=== PATIENT | female | born 1990 | race Caucasian/White ===

== ENCOUNTER 2019-04-24 14:20 | Emergency (ER) | payer OTHER ==
[~2019-04-24] VITALS: Ht 154.9 cm; Wt 56.7 kg
[2019-04-24 14:34] VITALS: BP 119/78
--- NOTE | 2019-04-24 15:00 | NUR ---
SEEN AND EXAMINED BY DR. MARTINEZ.
--- NOTE | 2019-04-24 15:28 | NUR ---
Patient discharged to home in stable condition. Written and verbal after care instructions given. Patient verbalizes understanding of instruction.
== END 2019-04-24 15:30 | disposition home or self-care (01) ==
LOC: ER 14:28
DX: K59.00 Constipation, unspecified (principal); Z60.2 Problems related to living alone

== ENCOUNTER 2019-12-31 09:03 | Emergency (ER) | payer OTHER ==
[~2019-12-31] VITALS: Ht 152.4 cm; Wt 55.8 kg
[2019-12-31 09:15] VITALS: BP 125/72
--- NOTE | 2019-12-31 09:32 | NUR ---
Patient discharged to home in stable condition. Written and verbal after care instructions given. Patient verbalizes understanding of instruction.
== END 2019-12-31 09:33 | disposition home or self-care (01) ==
LOC: ER 09:06
DX: H00.012 Hordeolum externum right lower eyelid (principal); L03.316 Cellulitis of umbilicus; Z60.2 Problems related to living alone